=== PATIENT | female | born 1950 | race African-American/Black ===

== ENCOUNTER 2024-01-23 11:26 | Outpatient (AMB) | payer MEDICARE, SELFPAY ==
[2024-01-23 11:35] VITALS: BP 122/66; PULSE 88; RESP 13; O2SAT 99; BMI 34.8
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
== END 2024-01-23 12:20 | disposition home or self-care (01) ==
PROVIDERS: PCP Nurse Practitioner Family; Visit Provider Nurse Practitioner Family
DX: Z00.00 Encounter for general adult medical examination without abnormal findings (principal); E66.2 Morbid (severe) obesity with alveolar hypoventilation; M35.00 Sjogren syndrome, unspecified; Z68.34 Body mass index [BMI] 34.0-34.9, adult; F33.0 Major depressive disorder, recurrent, mild; Z79.899 Other long term (current) drug therapy; R39.9 Unspecified symptoms and signs involving the genitourinary system; F41.1 Generalized anxiety disorder
CPT/HCPCS: 99387

== ENCOUNTER 2024-01-23 12:03 | Outpatient (REF) | payer BC, SELFPAY ==
[2024-01-23 14:56] LABS: Appearance Urine Clear; Color Urine Yellow; Glucose Urine UA Negative (Negative); Leukocyte Esterase Urine Small (1+) (Negative); Nitrite Urine Positive (Negative); PH 5.5 (5.0-9.0); Specific Gravity - Urine 1.015 (1.005-1.025); UMIC TRIGGER UACC YES; Urine Blood Negative (Negative); Urine Ketones Negative (Negative); Urine Protein Negative (Neg-Trace)
[2024-01-23 14:58] LABS: Bacteria Urine 4+ (None Seen); Hyaline Casts Urine 0-2 /LPF (0-2); RBC Urine 0-2 /HPF (0-2); Squamous Epithelial Cell Urine 0-2 /HPF (0-2); UACC Culture Trigger YES; WBC Urine 21-50 /HPF (0-5)
== END 2024-01-23 12:04 | disposition home or self-care (01) ==
LOC: HO.LAB 12:03
PROVIDERS: Visit Provider Nurse Practitioner Family
DX: R39.9 Unspecified symptoms and signs involving the genitourinary system (principal)
CPT/HCPCS: 81001; 87086; 87088; 87186

== ENCOUNTER 2025-03-02 08:26 | Outpatient (AMB) | payer MEDICARE, SELFPAY ==
--- NOTE | 2025-03-02 08:30 | A.OFFPC_ITS ---
Vital Signs 03/02/25 08:38 Height 5 ft 4 in Weight 202 lb 2 oz BMI 34.7 BP 138/78 Blood Pressure Location Rt brachial Position Sitting Respiration 13 Pulse 72 Pulse Source Pulse Oximeter Temp 97.5 F Temp Source Oral Pulse Oximetry (%) 96 Oxygen Delivery Method Room Air Intake Visit Reasons: medication concerns Intake Note: Patient needs refill on meds and also patient needs a referral. Patient also has questins about PT. Finished Cigar Maker Required: No Allergies Spink And Derivatives Allergy (Severe, Verified 03/02/25 08:31) Anaphylaxis Medication List - Last Reconciled 03/02/25 by Pamela Hurt, [employer]- albuterol sulfate 5 mg inhalation QID blood sugar diagnostic (Blood Glucose Test strips) As directed chlorthalidone 25 mg PO DAILY hydroxychloroquine 200 mg PO DAILY ibuprofen 600 mg PO Q8H PRN lancing device (Auto-Lancet Mini) As directed levothyroxine 50 mcg PO DAILY mycophenolate mofetil 500 mg PO BID ondansetron HCl 4 mg PO Q8H sertraline 25 mg PO DAILY Tobacco use date assessed: 03/02/25 Fall risk assessment: 2 + Falls in past year Last assessed Fall Risk: 03/02/25 Dental Screening Dental Screen Date: 03/02/25 Did you have a dental visit in the last 12 months?: Yes Did you have a dental problem in the last 6 months where you did not have access to dental care?: No Was dental information given to patient?: Patient has dentist HPI HPI Comments History of Present Illness Details 75 y/o F with Sjorgens, obesity, MDD, GA D, Hypothyroid, HTN Surgery - left breast lump removed, reports benign, s/p knee replacement Health Maintenance: Colon reports UTD, next one in 6-7 years Mammo states done 2023 [place] Dexa unsure PAP unsure Tdap reports UTD Specialists: Rheumatology Optho Pulm Derm History of Present Illness - The patient is a 75-year-old female pr esenting for follow-up here with Dtr - I have not seen her in about 1 year, w as living between here and [place]; states she is now living her permanently; i do not have records on her; poor historian. - JOSE/MDD on sertaline - Wants PT for bilat knee pain, falls w/ o injury, using cane to walk - Hypertension; chlorthalidone continued , but losartan and amlodipine not refilled since last year. BP WNL today. - Hypothyroid, levothyroxine not taken recently. - Sj?gren's Syndrome requires follow-up, requesting Rheum referral. Discontinues hydroxychloroquine, takes mycophenolate. Reports nausea with the latter and needs Zofran. - would like to see pulm, has cough, rep orts Lung scarring observed in historical imaging, i do not have these records - Gets rashs occassionally, would like t o see Derm - Did have a UTI last time i saw her; st ates she has foul smelling urine today.Denies fever, chills. Review of Systems - Musculoskeletal: Reports instability a nd falls, knee pain. - Neurological: Reports balance issues. - Constitutional: Denies recent mammogra m needed; - Respiratory: Occasional cough; lung sc arring noted historically. - Cardiovascular: No recent hypertension spikes; current medication management discussed. - Dermatological: Mention of intermitten t rashes. - Endocrine: Thyroid medication not take n. - Ophthalmic: Sj?gren?s Syndrome, requi res Optho referral. Physical Exam General: Well developed, well nourished, in no acute distress. Appears stated age. Head: Normocephalic, atraumatic. Eyes: Pupils are equal, round and reactive to light and accommodation. Conjunctivae are clear. Lungs: Cough w/ deep breathing, faint exp wheeze throughout Heart: Distant hard to appreciate, Regular rate and rhythm. No murmurs, click, rubs or gallops are noted. Musculoskeletal: Joints are nontender, without swelling, redness, or effusions. Walks w/ cane. crepitus bilat knees. Pulses: Peripheral pulses are equal and palpable bilaterally. Extremities: No clubbing, cyanosis nor edema is noted. Psych: Mood and affect appropriate. Discussion Notes During the visit, we discussed the need for medication refills and referrals. Medications such as losartan and amlodipine have not been refilled since the last visit, but chlorthalidone has been continued for managing hypertension. The necessity of exploring levothyroxine was acknowledged, pending updated lab work to understand thyroid function before recommencing. Blood work will be completed today to check A1c levels, cholesterol, and to screen for urinary tract infection due to past history with evidence from the last visit. Referrals for rheumatology were initiated for management of rheumatoid arthritis and associated Sj?gren's Syndrome. We also explored a physical therapy referral to address balance issues and knee pain. I have asked staff to get a med claim hx from Martínez Rolon to confirm meds she is taking before refills are sent. This is pending at this time. The patient was advised to follow-up in six months for repeat lab work. Consent for these interventions and referrals was obtained with discussions revolving around specific medical tests and check-ups. We addressed communication preferences with the patient portal, facilitating easy access for the patient to monitor lab results and communicate efficiently. Refills on meds as appropriate will be sent once med claim hx and labs are reviewed. Consent Patient was informed and verbally consented to the use of an ambient scribe for clinic note documentation during this visit. Total time spent caring for the patient today was 45 minutes. This includes time spent before the visit reviewing the chart, time spent during the visit, and time spent after the visit on documentation, reviewing laboratory results, diagnostic imaging, medications, performing a medically necessary evaluation, counseling on diagnoses, care coordination, ordering appropriate tests, ordering appropriate medications, review of tests performed by other providers, reporting test results with the patient, communication with other healthcare providers. [facility] Medical History (Updated 03/02/25 @ 09:14 by Pamela Hurt [facility]) Autoimmune disorder Diabetes Family history of skin conditions JOSE (generalized anxiety disorder) Hypertension Surgical History (Updated 01/23/24 @ 12:38 by Sophia Ayala CMA) No pertinent past surgical history Social History (Updated 01/23/24 @ 12:38 by Sophia Ayala CMA) Household Members: Family Household Members Other:: HAS 2 DAUGHTERS Housing: Apartment Alcohol intake: never Patient Tobacco Use Status: Never used Tobacco e-Cigarette/Vaping Use: Never Used Second Hand Smoke Exposure: No service: No Current occupational status: retired Current occupational exposures/hazards: No Sexual orientation: Straight/Heterosexual Gender identity: Female Cognitive needs: No Hearing needs: No Vision needs: Yes (wears glasses) Questionnaire PHQ-9 Over the last 2 weeks, how often have you been bothered by any of the following problems? 1. Little interest or pleasure in doing things: several days 2. Feeling down, depressed, or hopeless: several days 3. Trouble falling or staying asleep, or sleeping too much: more than half the days 4. Feeling tired or having little energy: several days 5. Poor appetite or overeating: more than half the days 6. Feeling bad about yourself - or that you are a failure or have let yourself or your family down: several days 7. Trouble concentrating on things, such as reading the newspaper or watching television: several days 8. Moving or speaking so slowly that other people could have noticed. Or the opposite - being so fidgety or restless that you have been moving around a lot more than usual: not at all 9. Thoughts that you would be better off or of hurting yourself in some way: not at all Total score: 9 Depression Screening Interpretation: Positive Depression Screening Follow-up: Existing condition and Declines treatment Depression Screening Done: Yes 62876 - PHQ-9 Billing: Yes Source: Developed by Drs. Markos Arreola, Herlinda Gannon, Quincy Schaeffer and colleagues, with an educational benedict from [employer]. Thrive Questionnaire Date Thrive assessed: 03/02/25 I am a: Patient What is your living situation today?: I choose not to answer this question Within the past 12 months, did the food you bought not last and you didn't have the money to get more?: Never true Within the past 12 months, did you worry whether your food would run out before you got money to buy more?: Never true Do you have trouble paying for medicines?: No Do you have trouble getting transportation to medical appointments?: Yes Do you have trouble paying your heating and electricity bill?: No Do you have trouble taking care of your child, family member or friend?: No Do you have trouble with day-to-day activities such as bathing, preparing meals, shopping, managing finances, etc.?: No Are you currently unemployed and looking for a job?: No Are you interested in more education?: I choose not to answer this question Please select the resources that you would like help with: Housing/Longterm and Transportation Currently or been in a relationship where the following occur: No concerns reported THRIVE Score: 1 AUDIT C Alcohol Use Questionnaire (AUDIT-C) 1. How often do you have a drink containing alcohol?: Never 3. How often do you have six or more drinks on one occasion?: Never Total Score: 0 Score Reviewed/Action Taken: Yes JOSE-7 AMB Questionnaire JOSE-7 Date JOSE - 7 assessed: 03/02/25 Feeling nervous, anxious, or on edge: 1 = Several days Not being able to stop or control worryin = More than half the days Worrying too much about different things: 2 = More than half the days Trouble relaxin = More than half the days Being so restless that it is hard to sit still: 1 = Several days Becoming easily annoyed or irritable: 1 = Several days Feeling afraid as if something awful might happen: 0 = Not at all Total JOSE-7 score (0-4 normal; 5-9 mild; 10-14 moderate; 15-21 severe): 9 Source: Developed by Drs. Markos Arreola, Herlinda Gannon, Quincy Schaeffer and colleagues, with an educational benedict from [employer]. JOSE-7 Assessment Billing JOSE-7 Assessment Tool: JOSE-7 Assessment 41414 Physical exam (Primary Care) Vital Signs: Last Vital Signs Temp 97.5 F 03/02/25 08:38 Pulse 72 03/02/25 08:38 Resp 13 03/02/25 08:38 BP 138/78 03/02/25 08:38 Pulse Ox 96 03/02/25 08:38 Oxygen Delivery Method Room Air 03/02/25 08:38 BMI result Body Mass Index 34.7 BMI Assessment/Plan discussion: High BMI High, discussed plan: lifestyle Tobacco/Smoking Status: Tobacco use Status Tobacco use date assessed 03/02/25 03/02/25 08:40 Patient Tobacco Use Status Never used Tobacco 03/02/25 08:40 e-Cigarette/Vaping Use Never Used 03/02/25 08:40 PHQ-9: PHQ-9 Score PHQ-9: Total score 9 03/02/25 08:40 Depression Screening Interpretation: Positive Depression Screening Follow-up: Existing condition and Declines treatment Thrive Assessment: Date of Thrive Assessment Date Thrive assessed 03/02/25 03/02/25 08:40 Currently or been in a relationship where the following occur: No concerns reported Coding Level of Care Code Est Pt Level 5 (48968) Complex EM visit Add On G2211 Diagnoses Sjogren's syndrome, with unspecified organ involvement M35.00 Sjogren organ or system involvement: unspecified organ involvement Class 1 obesity with alveolar hypoventilation, serious comorbidity, and body mass index (BMI) of 34.0 to 34.9 in adult E66.2; Z68.34 Serious obesity comorbidity presence: with serious comorbidity JOSE (generalized anxiety disorder) F41.1 Mild episode of recurrent major depressive disorder F33.0 Major depression episode severity: mild Chronic pain of both knees M25.561; M25.562; G89.29 Chronicity: chronic Fall, initial encounter W19.XXXA Encounter type: initial encounter Primary hypertension I10 Hypertension type: primary hypertension Acquired hypothyroidism E03.9 Hypothyroidism type: acquired Foul smelling urine R82.90 Chronic cough R05.3 Cough type: chronic Skin rash R21 Additional Codes JOSE-7 Assessment Billing - JOSE-7 Assessment Tool: JOSE-7 Assessment 10924 ([id number]) PHQ-9 - 27632 - PHQ-9 Billing: Yes ([id number]) Assessment & Plan Assessment & Plan (1) Sjogren's disease: Comment: unable to further specify as i have no records and she is a very poor historian. cont care w/ rheum Code(s): M35.00 - Sjogren syndrome, unspecified Category: Medical Qualifiers: Sjogren organ or system involvement: unspecified organ involvement Qualified Code(s): M35.00 - Sjogren syndrome, unspecified (2) Class 1 obesity with alveolar hypoventilation and body mass index (BMI) of 34.0 to 34.9 in adult: Comment: lifestyle mods recommended Code(s): E66.2 - Morbid (severe) obesity with alveolar hypoventilation; Z68.34 - Body mass index [BMI] 34.0-34.9, adult Category: Medical Qualifiers: Serious obesity comorbidity presence: with serious comorbidity Qualified Code(s): E66.2 - Morbid (severe) obesity with alveolar hy poventilation; Z68.34 - Body mass index [BMI] 34.0-34.9, adult (3) JOSE (generalized anxiety disorder): Code(s): F41.1 - Generalized anxiety disorder Category: Medical (4) MDD (major depressive disorder), recurrent episode: Code(s): F33.9 - Major depressive disorder, recurrent, unspecified Category: Medical Qualifiers: Major depression episode severity: mild Qualified Code(s): F33.0 - Major depressive disorder, recurrent, mild (5) Bilateral knee pain: Code(s): M25.561 - Pain in right knee; M25.562 - Pain in left knee Category: Medical Qualifiers: Chronicity: chronic Qualified Code(s): M25.561 - Pain in right knee; M25.562 - Pain in left knee; G89.29 - Other chronic pain (6) Fall: Code(s): W19.XXXA - Unspecified fall, initial encounter Category: Medical Qualifiers: Encounter type: initial encounter Qualified Code(s): W19.XXXA - Unspecified fall, initial encounter (7) Hypertension: Code(s): I10 - Essential (primary) hypertension Category: Medical Qualifiers: Hypertension type: primary hypertension Qualified Code(s): I10 - Essential (primary) hypertension (8) Hypothyroid: Code(s): E03.9 - Hypothyroidism, unspecified Category: Medical Qualifiers: Hypothyroidism type: acquired Qualified Code(s): E03.9 - Hypothyroidism, unspecified (9) Foul smelling urine: Code(s): R82.90 - Unspecified abnormal findings in urine Category: Medical (10) Cough: Code(s): R05.9 - Cough, unspecified Category: Medical Qualifiers: Cough type: chronic Qualified Code(s): R05.3 - Chronic cough (11) Skin rash: Code(s): R21 - Rash and other nonspecific skin eruption Category: Medical Plan . Orders: Orders PT Evaluation and Treatment Today M25.561 - Pain in right knee, M25.562 - Pain in left knee, R26.81 - Unsteadiness on feet, W19.XXXA - Unspecified fall, initial encounter Complete Blood Count no Diff Today E03.9 - Hypothyroidism, unspecified, F33.0 - Major depressive disorder, recurrent, mild, F41.1 - Generalized anxiety disorder, I10 - Essential (primary) hypertension, R82.90 - Unspecified abnormal findings in urine Comprehensive Met. Panel Today E03.9 - Hypothyroidism, unspecified, F33.0 - Major depressive disorder, recurrent, mild, F41.1 - Generalized anxiety disorder, I10 - Essential (primary) hypertension, R82.90 - Unspecified abnormal findings in urine Hemoglobin A1c Today E03.9 - Hypothyroidism, unspecified, F33.0 - Major depressive disorder, recurrent, mild, F41.1 - Generalized anxiety disorder, I10 - Essential (primary) hypertension, R82.90 - Unspecified abnormal findings in urine Lipid Panel Today E03.9 - Hypothyroidism, unspecified, F33.0 - Major depressive disorder, recurrent, mild, F41.1 - Generalized anxiety disorder, I10 - Essential (primary) hypertension, R82.90 - Unspecified abnormal findings in urine TSH reflex Free T4 Today E03.9 - Hypothyroidism, unspecified, F33.0 - Major depressive disorder, recurrent, mild, F41.1 - Generalized anxiety disorder, I10 - Essential (primary) hypertension, R82.90 - Unspecified abnormal findings in urine Microalbumin, Random (w Creat) Today E03.9 - Hypothyroidism, unspecified, F33.0 - Major depressive disorder, recurrent, mild, F41.1 - Generalized anxiety disorder, I10 - Essential (primary) hypertension, R82.90 - Unspecified abnormal findings in urine Vitamin B12 and Folate Today E03.9 - Hypothyroidism, unspecified, F33.0 - Major depressive disorder, recurrent, mild, F41.1 - Generalized anxiety disorder, I10 - Essential (primary) hypertension, R82.90 - Unspecified abnormal findings in urine Vitamin D 25-OH Total Today E03.9 - Hypothyroidism, unspecified, F33.0 - Major depressive disorder, recurrent, mild, F41.1 - Generalized anxiety disorder, I10 - Essential (primary) hypertension, R82.90 - Unspecified abnormal findings in urine UA CC w/rflx Micro + Cult Today E03.9 - Hypothyroidism, unspecified, F33.0 - Major depressive disorder, recurrent, mild, F41.1 - Generalized anxiety disorder, I10 - Essential (primary) hypertension, R82.90 - Unspecified abnormal findings in urine Referrals Ophthalmology Referral M35.00 - Sjogren syndrome, unspecified Dermatology Referral M35.00 - Sjogren syndrome, unspecified, R21 - Rash and other nonspecific skin eruption Rheumatology Referral M35.00 - Sjogren syndrome, unspecified Pulmonology Referral M35.00 - Sjogren syndrome, unspecified, R05.9 - Cough, unspecified
--- OUTSIDE RECORDS SUMMARY | 2025-03-02 08:35 | XMS_ITS | Patient Health Record ---
Author Organization [facility] Address [address] [place] [address] Care Team Providers Care Manufacturing Quality Engineer Name Role Phone CHAPIS CARNES Primary Care Provider [phone] Reason For Referral No Information Plan Of Treatment No Information Insurance Providers Payer Name Payer Address Payer Phone Subscriber Number Group Number Insured Name Patient Relationship to Insured Coverage Start Date Coverage End Date COVID19 HRSA Uninsured Testing and Treatment CARES Act Provider Relief Fund [address] [address] [place] [address] [id number] Danyelle Hughes Self - patient is the insured 1 2
[2025-03-02 08:38] VITALS: BP 138/78; PULSE 72; RESP 13; TEMP 36.4; O2SAT 96; BMI 34.7
== END 2025-03-02 09:07 | disposition home or self-care (01) ==
LOC: HO.HMCFM 08:27
PROVIDERS: PCP Nurse Practitioner Family; Visit Provider Nurse Practitioner Family
DX: M35.00 Sjogren syndrome, unspecified (principal); E66.2 Morbid (severe) obesity with alveolar hypoventilation; Z68.34 Body mass index [BMI] 34.0-34.9, adult; F41.1 Generalized anxiety disorder; F33.0 Major depressive disorder, recurrent, mild; M25.561 Pain in right knee; M25.562 Pain in left knee; G89.29 Other chronic pain; W19.XXXA Unspecified fall, initial encounter; I10 Essential (primary) hypertension; E03.9 Hypothyroidism, unspecified; R82.90 Unspecified abnormal findings in urine; R05.3 Chronic cough; R21 Rash and other nonspecific skin eruption

== ENCOUNTER → 2025-03-02 08:26 | Outpatient (BNVA) | payer MEDICARE, SELFPAY | PROVIDERS: PCP Nurse Practitioner Family; Visit Provider Nurse Practitioner Family | DX: Z13.89 Encounter for screening for other disorder (principal) | CPT/HCPCS: 96127; 99212 ==

== ENCOUNTER 2025-03-02 09:18 | Outpatient (REF) | payer MEDICARE, SELFPAY ==
[2025-03-02 11:16] LABS: Appearance Urine Clear; Color Urine Yellow; Glucose Urine UA Negative (Negative); Leukocyte Esterase Urine Moderate (2+) (Negative); Nitrite Urine Positive (Negative); UMIC TRIGGER UACC YES; Urine Blood Negative (Negative); Urine Ketones Negative (Negative); Urine Protein Negative (Neg-Trace)
[2025-03-02 11:21] LABS: Bacteria Urine 4+ (None Seen); Hyaline Casts Urine 0-2 /LPF (0-2); RBC Urine 0-2 /HPF (0-2); Squamous Epithelial Cell Urine 0-2 /HPF (0-2); UACC Culture Trigger YES; WBC Urine >50 /HPF (0-5)
[2025-03-02 11:37] LABS: Hematocrit 33.3 % (37.0-47.0); Hemoglobin 10.4 g/dl (12.0-16.0); Mean Corpuscular HGB Conc 31.2 g/dl (31.0-35.0); Mean Corpuscular Hemoglobin 24.1 pg (27.0-33.0); Mean Corpuscular Volume 77.3 fL (80.0-98.0); Mean Platelet Volume 11.6 fL (9.4-12.3); Platelet Count 262 X10*3/uL (160-400); Red Blood Count 4.31 X10*6/uL (4.20-5.50); Red Cell Distribution Width 15.7 % (11.0-16.0); White Blood Count 7.6 X10*3/uL (4.8-10.8)
[2025-03-02 11:44] LABS: Estimated Average Glucose 134 mg/dL; Hemoglobin A1c % 6.3 % (<6.0)
[2025-03-02 12:18] LABS: Creatinine Urine 83.23 mg/dL; Microalbum/Creatinine Ratio Ur 13.2 ug/mg cr (<30)
[2025-03-02 12:31] LABS: Folate 11.3 ng/mL (> or = 4.0); Vitamin B12 1021 pg/mL (200-900)
[2025-03-02 15:14] LABS: Vitamin D 25-OH Total 25.1 ng/mL (>30)
[2025-03-02 15:27] LABS: Anion Gap 9 (12-20)
[2025-03-02 15:32] LABS: Alanine Aminotransferase 11 U/L (0-31); Albumin Level 3.8 g/dL (3.5-5.0); Alkaline Phosphatase 77 U/L (39-117); Aspartate Amino Transferase 21 U/L (5-31); Bilirubin Total 0.2 mg/dL (0.0-1.0); Blood Urea Nitrogen 17 mg/dL (9-16); Calcium 9.3 mg/dL (8.4-10.2); Carbon Dioxide 28 mmol/L (22-29); Chloride 109 mmol/L (96-108); Cholesterol 176 mg/dL (<200); Estimated Glomerular Filt Rate 42; Glucose Random 102 mg/dL (60-115); HDL Cholesterol 48 mg/dL (>40); LDL Cholesterol Calculated 109 mg/dL (<100); Potassium 3.7 mmol/L (3.3-5.1); Sodium 142 mmol/L (135-145); Total Protein 8.4 g/dL (6.5-8.0); Triglycerides 97 mg/dL (<150)
== END 2025-03-02 09:19 | disposition home or self-care (01) ==
LOC: HO.WFDLDS 09:18
PROVIDERS: Visit Provider Nurse Practitioner Family
DX: F41.1 Generalized anxiety disorder (principal); F33.0 Major depressive disorder, recurrent, mild; E03.9 Hypothyroidism, unspecified; I10 Essential (primary) hypertension; R82.90 Unspecified abnormal findings in urine; Z13.30 Encounter for screening examination for mental health and behavioral disorders, unspecified
CPT/HCPCS: 36415; 80053; 80061; 81001; 82043; 82306; 82570; 82607; 82746; 83036; 84443; 85027; 87086; 87088; 87186; 96127; 99212

== ENCOUNTER 2025-04-15 10:55 | Outpatient (REF) | payer BC, SELFPAY ==
[2025-04-15 12:55] LABS: MANUAL DIFF FLAG NO
[2025-04-15 14:06] LABS: Hematocrit 35.6 % (37.0-47.0); Hemoglobin 11.1 g/dl (12.0-16.0); Imm Gran Abs Auto 0.04 X10*3/uL (0.00-0.03); Imm Gran Pct Auto 0.5 % (0.0-0.4); Lymphocytes Absolute Auto 2.5 X10*3/uL (1.2-4.9); Mean Corpuscular HGB Conc 31.2 g/dl (31.0-35.0); Mean Corpuscular Hemoglobin 23.9 pg (27.0-33.0); Mean Corpuscular Volume 76.7 fL (80.0-98.0); NRBC Abs Auto 0.000 X10*3/uL (0.0-0.012); NRBC Pct Auto 0.0 /100WBC (0.0-0.2); Platelet Count 238 X10*3/uL (160-400); Red Blood Count 4.64 X10*6/uL (4.20-5.50); White Blood Count 8.8 X10*3/uL (4.8-10.8)
[2025-04-15 14:54] LABS: Parathyroid Hormone Intact 120.3 pg/mL (8.7-77.1)
[2025-04-20 10:19] LABS: Anti Glomerular Basement Memb <1.0 AI; Proteinase 3 PR3 Antibodies <1.0 AI
[2025-04-21 02:39] LABS: Phospholipase A2 IgG ELISA <4 RU/mL; Phospholipase A2 IgG IFA NEGATIVE (NEGATIVE)
== END 2025-04-15 10:56 | disposition home or self-care (01) ==
LOC: HO.LAB 10:55
PROVIDERS: PCP Nurse Practitioner Family; Referring Provider Nurse Practitioner Family; Visit Provider Internal Medicine Nephrology
DX: N18.30 Chronic kidney disease, stage 3 unspecified (principal); I10 Essential (primary) hypertension
CPT/HCPCS: 36415; 82306; 82784; 83520; 83970; 85025; 86021; 86160; 86225; 86255; 86334

== ENCOUNTER 2025-04-15 10:55 | Outpatient (AMB) | payer BC, SELFPAY ==
--- NOTE | 2025-04-15 11:29 | HO.NEPHOV_ITS ---
Vital Signs 04/15/25 11:30 Height 5 ft 4 in Weight 191 lb 8 oz BMI 32.9 BP 140/70 H Blood Pressure Location Rt brachial Position Sitting Pulse 79 Pulse Source Pulse Oximeter Pulse Oximetry (%) 95 Oxygen Delivery Method Room Air Intake Visit Reasons: INP:CKD stg 3, Anemia, Sjogren syndrome Machine Feeder Raw Stock Required: No Accompanied by: Self / Same As Patient Allergies [place] And Derivatives Allergy (Severe, Verified 04/15/25 11:30) Anaphylaxis HPI Comments Details: I had the privilege of seeing Danyelle in consultation for CKD. She is a 75-year-old female who had been living between [place], [place] and [place] with H/O Sjogren's syndrome who takes MMF for it. She is not a diabetic but has hypertension for which she is on chlorthalidone .She has H/O losartan and amlodipine intake but not taking anymore. She has bilateral knee pain but denies taking excess NSAID's. She has H/O UTI's but denies fever, chills, hematuria or edema. She denies retinopathy, CAD, carotid stenosis, CVA, CHF or PAD. She has no H/O orthostatic drop in blood pressure, PND, orthopnea, chest pain, palpitations or proteinuria. Her last serum creatinine has been 1.25 [facility] Medical History (Updated 04/18/25 @ 21:15 by Tanner Brar MD) Family history of skin conditions Autoimmune disorder Diabetes Hypertension JOSE (generalized anxiety disorder) Surgical History No pertinent past surgical history Social History Household Members: Family Household Members Other:: HAS 2 DAUGHTERS Housing: Apartment Alcohol intake: never Patient Tobacco Use Status: Never used Tobacco e-Cigarette/Vaping Use: Never Used Second Hand Smoke Exposure: No service: No Current occupational status: retired Current occupational exposures/hazards: No Sexual orientation: Straight/Heterosexual Gender identity: Female Cognitive needs: No Hearing needs: No Vision needs: Yes (wears glasses) Review of Systems Const All systems reviewed & are unremarkable except as noted in HPI and below Physical Exam Vital Signs: Last Vital Signs Pulse 79 04/15/25 11:30 BP 140/70 H 04/15/25 11:30 Pulse Ox 95 04/15/25 11:30 Oxygen Delivery Method Room Air 04/15/25 11:30 BMI result Body Mass Index 32.9 Const General: comfortable and no acute distress Orientation/consciousness: patient oriented x3 HEENT Head: Yes normocephalic Mouth: Normal oral and palatal mucosa present Eyes EOM: EOMs intact bilaterally Neck Neck: Yes supple Resp Auscultation: clear to auscultation bilaterally Cardio Jugular venous distension: no JVD Rate: regular rate GI Palpation (GI): Soft to palpation Auscultation: normal bowel sounds General: Yes no CVA tenderness Back/Spine/Pelvis Back: no CVA tenderness Skin General skin exam: no rashes or lesions noted Neuro General: patient oriented x3 and moves all extremities Extrem General: Yes no pedal edema Results Reviewed Nephrology Results: Hgb, (12.0-16.0) 11.1 g/dl L 04/15/25 WBC, (4.8-10.8) 8.8 X10*3/uL 04/15/25 Plt Count, (160-400) 238 X10*3/uL 04/15/25 Sodium, (135-145) 142 mmol/L 03/02/25 Potassium, (3.3-5.1) 3.7 mmol/L 03/02/25 Chloride, (96-108) 109 mmol/L H 03/02/25 Carbon Dioxide, (22-29) 28 mmol/L 03/02/25 BUN, (9-16) 17 mg/dL H 03/02/25 Creatinine, (0.5-1.4) 1.25 mg/dL 03/02/25 Calcium, (8.4-10.2) 9.3 mg/dL 03/02/25 PTH Intact, (8.7-77.1) 120.3 pg/mL H 04/15/25 Urine Protein, (Neg-Trace) Negative mg/dL 03/02/25 Urine Creatinine 83.23 mg/dL 03/02/25 Assessment & Plan Assessment & Plan (1) Hypertension: Code(s): I10 - Essential (primary) hypertension Category: Medical Qualifiers: Hypertension type: primary hypertension Qualified Code(s): I10 - Essential (primary) hypertension (2) CKD (chronic kidney disease) stage 3, GFR 30-59 ml/min: Code(s): N18.30 - Chronic kidney disease, stage 3 unspecified Category: Medical Qualifiers: Chronic kidney disease stage 3 subtype: stage 3a (GFR 45-59) Qualified Code(s): N18.31 - Chronic kidney disease, stage 3a Plan Danyelle has CKD 3. Her serum creatinine was 1.25. She has hypertension and H/O ACEI but not on it now. She is just on Chlorthalidone now. Her BP needs to be kept at goal. She has Sjogrens and is on MMF. She has no proteinuria. DDx is broad now. I have ordered W/U including imaging studies. I shall consider initiating her on low dose ACEI with time. There is no indication for renal biopsy now. She should minimize NSAID's and maintain good hydration. She is a potential candidate for SGLT2i in the future. Further management is pending evolving data Orders: Orders Anti DNA DS Antibody 04/15/25 I10 - Essential (primary) hypertension, N18.30 - Chronic kidney disease, stage 3 unspecified Myeloperoxidase Antibody 04/15/25 I10 - Essential (primary) hypertension, N18.30 - Chronic kidney disease, stage 3 unspecified Complement C3 04/15/25 I10 - Essential (primary) hypertension, N18.30 - Chronic kidney disease, stage 3 unspecified Phospholipase A2 Receptor Pnl 04/15/25 I10 - Essential (primary) hypertension, N18.30 - Chronic kidney disease, stage 3 unspecified Parathyroid Hormone Intact 04/15/25 I10 - Essential (primary) hypertension, N18.30 - Chronic kidney disease, stage 3 unspecified Vitamin D 25-OH Total 04/15/25 I10 - Essential (primary) hypertension, N18.30 - Chronic kidney disease, stage 3 unspecified Protein Creatinine Ratio, Ur 04/15/25 I10 - Essential (primary) hypertension, N18.30 - Chronic kidney disease, stage 3 unspecified UA and rflx microscopic 04/15/25 I10 - Essential (primary) hypertension, N18.30 - Chronic kidney disease, stage 3 unspecified Proteinase 3 PR3 Antibodies 04/15/25 I10 - Essential (primary) hypertension, N18.30 - Chronic kidney disease, stage 3 unspecified Anti Glomerular Basement Memb 04/15/25 I10 - Essential (primary) hypertension, N18.30 - Chronic kidney disease, stage 3 unspecified Complement C4 04/15/25 I10 - Essential (primary) hypertension, N18.30 - Chronic kidney disease, stage 3 unspecified Immunofixation Pnl, Serum 04/15/25 I10 - Essential (primary) hypertension, N18.30 - Chronic kidney disease, stage 3 unspecified Complete Blood Count Auto Diff 04/15/25 I10 - Essential (primary) hypertension, N18.30 - Chronic kidney disease, stage 3 unspecified US renal BI 2 Weeks I10 - Essential (primary) hypertension, N18.30 - Chronic kidney disease, stage 3 unspecified Coding Level of Care Code New Pt Level 4 (13701) Diagnoses Primary hypertension I10 Hypertension type: primary hypertension Stage 3a chronic kidney disease N18.31 Chronic kidney disease stage 3 subtype: stage 3a (GFR 45-59)
--- OUTSIDE RECORDS SUMMARY | 2025-04-15 11:29 | XMS_ITS | Patient Health Record ---
Author Organization [facility] Address [address] [place] [address] Care Team Providers Care System Integration Engineer Name Role Phone CHAPIS CARNES Primary Care Provider Reason For Referral No Information Plan Of Treatment No Information Insurance Providers Payer Name Payer Address Payer Phone Subscriber Number Group Number Insured Name Patient Relationship to Insured Coverage Start Date Coverage End Date COVID19 HRSA Uninsured Testing and Treatment CARES Act Provider Relief Fund [address] [address] [place] [address] [id number] Danyelle Hughes Self - patient is the insured 1 2
[2025-04-15 11:30] VITALS: BP 140/70; PULSE 79; O2SAT 95; BMI 32.9
== END 2025-04-15 12:02 | disposition home or self-care (01) ==
LOC: HO.HKA 10:56
PROVIDERS: PCP Nurse Practitioner Family; Referring Provider Nurse Practitioner Family; Visit Provider Internal Medicine Nephrology
DX: I10 Essential (primary) hypertension (principal); N18.31 Chronic kidney disease, stage 3a
CPT/HCPCS: 99204

== ENCOUNTER 2025-04-22 11:15 | Outpatient (REF) | payer BC, SELFPAY ==
--- OUTSIDE RECORDS SUMMARY | 2025-04-22 11:21 | XMS_ITS | Clinical Summary ---
Author Organization [facility] Address [address] [place] [phone] Phone Care Team Providers Care Health Unit Supervisor Name Role Phone Unknown, Unknown MD Unavailable Unavailable Unknown, Unknown Primary Care Provider Verna lin Allergies Active Allergy Reactions Criticality Noted Date Comments [place] And Derivatives Hives 07/28/2012 Medications hydroxychloroqu ine (PLAQUENIL) 200 mg tablet 400 mg. Active enalapril (VASOTEC) 20 MG tablet 40 mg. Active albuterol 90 mcg/actuation inhaler Inhale 2 puffs into the lungs every 4 (four) hours. 1 Inhaler 12/24/2017 Active naproxen (NAPROSYN) 500 MG tablet Take 500 mg by mouth. 03/18/2017 Active levothyroxine (SYNTHROID, LEVOTHROID) 50 MCG tablet Take 50 mcg by mouth daily. 06/09/2017 Active ferrous sulfate 325 mg (65 mg [place] iron) tablet Take 325 mg by mouth daily. 03/27/2016 Active valsartan (DIOVAN) 320 MG tablet Take 320 mg by mouth. 02/28/2023 Active mycophenolate mofetil (CELLCEPT) 500 mg tablet Take 1 tablet by mouth 2 (two) times a day. 12/30/2022 Active ondansetron (ZOFRAN) 4 MG tablet Take 4 mg by mouth every 8 (eight) hours as needed. 04/02/2023 Active sertraline (ZOLOFT) 25 MG tablet TAKE 2 TABLETS ONE TIME DAILY 02/24/2023 Active clobetasol (TEMOVATE) 0.05 % ointment 04/11/2023 Active budesonide-form oterol (SYMBICORT) 160-4.5 mcg/actuation inhaler Inhale 2 puffs into the lungs. 03/26/2022 Active amLODIPine (NORVASC) 5 MG tablet Take 5 mg by mouth. 07/22/2022 Active azelastine (ASTELIN) 137 mcg (0.1 %) nasal spray 137 mcg by Nasal route. 04/03/2022 Active TRUE METRIX GLUCOSE TEST STRIP Strp strips 09/16/2023 Active TRUEPLUS LANCETS 28 gauge Misc CHECK BLOOD GLUCOSE ONE TIME DAILY 09/15/2023 Active Active Problems Problem Noted Date Diagnosed Date Bronchiectasis without complication 08/05/2022 05/28/2023 Overview (05/28/2023): Last Assessment & Plan: Bronchiectasis without complication. Will schedule albuterol TID for airway clearance. If starts having more production will progress to singulair and 3% saline nebs. 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 Not on shanice e 01/24/2023 Are you concerned about learning? Not on file 01/24/2023 No 01/24/2023 No 01/24/2023 Digital Access Answer Date Recorded No 02/25/2023 No 02/25/2023 Reliable internet access at home? Not on file 02/25/2023 Device with a working camera? Not on file Comments Unknown Sex and Gender Information Value Date Recorded Sex Assigned at Not on file Legal Sex Female 5:56 PM EDT Gender Identity Not on file Sexual Orientation Not on file Last Filed Vital Signs Vital Sign Reading Time Taken Comments Blood Pressure 135/71 09/23/2023 1:17 PM EST Pulse 85 09/23/2023 1:17 PM EST Temperature 36.8 C (98.2 F) 09/23/2023 1:17 PM EST Respiratory Rate 19 09/23/2023 1:17 PM EST Oxygen Saturation 97% 09/23/2023 1:17 PM EST Inhaled Oxygen Concentration - - Weight 87.5 kg (193 lb) 02/16/2018 11:27 AM EDT Height 161.3 cm (5' 3.5 ) 02/16/2018 11:27 AM ED T Body Mass Index 33.65 02/16/2018 11:27 AM EDT Plan of Treatment Upcoming Encounters Date Type Department Care Team (Late st Contact Info) Description 06/13/2025 3:00 PM EDT Office Visit [facility] [address] [place] [address] [place] [address] Stewart Todd DO [address] [facility], [address] [place] [address] [email or web address] Health Maintenance Due Date Last Done Comments COVID-19 VACCINE (#1) 1955 DEPRESSION SCREENING 1962 HEPATITIS C SCREENING 02/09/1968 LIPID PANEL 02/09/1968 PNEUMOCOCCAL VACCINES (50+ years) (1 of 2 - PCV) 1969 COLOGUARD 1995 COLONOSCOPY 1995 COLORECTAL CANCER SCREENING 1995 FIT TEST 1995 FOBT 1995 SIGMOIDOSCOPY 1995 VIRTUAL COLONOSCOPY 1995 CREATININE LEVEL 02/16/2019 02/16/2018 POTASSIUM LEVEL 02/16/2019 02/16/2018 HEMOGLOBIN A1C 10/05/2022 04/04/2022, 07/0 03/2022, 02/14/2020, Additional history exists TSH LEVEL 04/04/2023 04/04/2022, 07/0 03/2022, 09/14/2020, Additional history exists DIABETIC EYE EXAM 05/28/2023 11/10/2020, , 05/16/2016, Additional history exists BLOOD PRESSURE 03/24/2024 09/23/2023 RSV VACCINE (1 - 1-dose 75+ series) 2025 Adult Td,Tdap Booster 06/10/2028 06/10/2018, 006 OSTEOPOROSIS SCREENING INITIAL (ONE-TIME) Completed 11/17/2020, 04/23/2018 ZOSTER VACCINES Completed 07/24/2022, 04/03/2022 SMOKING STATUS SCREENING (Once After 26 Yrs) Completed 05/28/2023 HEPATITIS A VACCINES Aged Out No long er eligible based on patient's age to complete this topic HIB VACCINES Aged Out No longer eligi ble based on patient's age to complete this topic MENINGOCOCCAL VACCINES (ACWY) Aged Out No longer eligible based on patient's age to complete this topic MENINGOCOCCAL VACCINES (B) Aged Out N o longer eligible based on patient's age to complete this topic Medical Devices Not on file Procedures Procedure Name Priority Date/Time Associated Diagnosis Comments TSH WITH REFLEX Routine 02/16/2018 12:12 PM EDT Acquired hypothyroidism BASIC METABOLIC PANEL Routine 02/16/2018 12:12 PM EDT Benign essential hypertension from Last 3 Months or Most Recently Relevant to Health Maintenance Results * TSH with reflex (02/16/2018 12:12 PM EDT) TSH 1.09 0.27 - 4.20 uIU/mL [facility] Blood 02/16/2018 12:1 2 PM EDT 02/16/2018 12:14 PM EDT us Surendra Rojas MD LAB BLOOD ORDERABLES Final Resu lt Performing Organization Address [facility]/ZIP Co de Phone Number [address] [address] * Basic metabolic panel (02/16/2018 12:12 PM EDT) SODIUM 140 133 - 146 mmol/L [facility] CHLORIDE 104 96 - 108 mmol/L [facility] POTASSIUM 5.0 3.3 - 5.1 mmol/L [facility] CO2 28 21 - 35 mmol/L [facility] BUN 12 6 - 19 mg/dL [facility] CREATININE 0.90 0.5 - 1.5 mg/dL [facility] GLUCOSE 89 70 - 99 mg/dL [facility] CALCIUM 9.7 8.4 - 10.3 mg/dL [facility] EGFR 66 >59 mL/min/1.7 3m2 [facility] Comment:If patient is black, multiply result by 1.159. The eGFR calculation has changed from the MDRD equation to the CKD-EPI equation as of December 02, 2017. ANION GAP 13 10 - 20 mmol/L [facility] Blood 02/16/2018 12:1 2 PM EDT 02/16/2018 12:14 PM EDT us Surendra Rojas MD LAB BLOOD ORDERABLES Final Resu lt Performing Organization Address [facility]/ZIP Co de Phone Number [address] [address] from Last 3 Months or Most Recently Relevant to Health Maintenance Insurance [place] BLUE REPLACEMENT MEDICARE PPO BLUE REPLACEMENT MEDICARE PPO BLUE [place] [address] [place] [address] MEDICARE PPO BLUE [place] [address] [place] [address] MEDICARE PPO BLUE REPLACEMENT [place] Care Teams Health Unit Supervisor Relationship Specialty Start Date End Date Unknown, Unknown, PCP - General 01/18/20 Unknown, Unknown, 12/25/17 Additional Source Comments The information contained in this document represents components of the legal health record. It is not the complete legal health record.[facility]
--- OUTSIDE RECORDS SUMMARY | 2025-04-22 11:21 | XMS_ITS | Patient Health Record ---
Author Organization [facility] Address [address] [place] [address] Care Team Providers Care Peanut Blancher Name Role Phone CHAPIS CARNES Primary Care Provider Reason For Referral No Information Plan Of Treatment No Information Insurance Providers Payer Name Payer Address Payer Phone Subscriber Number Group Number Insured Name Patient Relationship to Insured Coverage Start Date Coverage End Date COVID19 HRSA Uninsured Testing and Treatment CARES Act Provider Relief Fund [address] [address] [place] [address] [id number] Danyelle Hughes Self - patient is the insured 1 2
[2025-04-22 13:55] LABS: Appearance Urine Clear; Glucose Urine UA Negative (Negative); PH 7.0 (5.0-9.0); Specific Gravity - Urine 1.010 (1.005-1.025); UMIC TRIGGER UACC YES
[2025-04-22 14:06] LABS: UACC Culture Trigger YES
[2025-04-22 14:26] LABS: Total Protein Urine Random < 7 mg/dL (<12)
== END 2025-04-22 11:16 | disposition home or self-care (01) ==
LOC: HO.WFDLDS 11:15
PROVIDERS: Referring Provider Internal Medicine Nephrology; Visit Provider Nurse Practitioner Family
DX: I12.9 Hypertensive chronic kidney disease with stage 1 through stage 4 chronic kidney disease, or unspecified chronic kidney disease (principal); N18.30 Chronic kidney disease, stage 3 unspecified; F41.1 Generalized anxiety disorder; F33.0 Major depressive disorder, recurrent, mild; E03.9 Hypothyroidism, unspecified; R82.90 Unspecified abnormal findings in urine
CPT/HCPCS: 81001; 82570; 84156; 87086; 87088; 87186

== ENCOUNTER 2025-04-28 12:48 | Outpatient (REF) | payer MEDICARE, SELFPAY ==
--- NOTE | ~2025-04-28 | US_ITS ---
CLINICAL HISTORY: N18.30 - Chronic kidney disease, stage 3 unspecified US Renal Comparison: None provided Findings: Right kidney normal size and echotexture, 9.4 cm length. Left kidney normal size and echotexture, 8.5 cm length. No hydronephrosis of either kidney. Normal color Doppler IMPRESSION: 1. Normal kidneys. This document has been electronically signed by: Eduar Wellington MD on 04/29/2025 08:35:38
--- OUTSIDE RECORDS SUMMARY | 2025-04-28 12:58 | XMS_ITS | Patient Health Record ---
Author Organization [facility] Address [address] [place] [address] Care Team Providers Care Transfer Knitter Name Role Phone CHAPIS CARNES Primary Care Provider Reason For Referral No Information Plan Of Treatment No Information Insurance Providers Payer Name Payer Address Payer Phone Subscriber Number Group Number Insured Name Patient Relationship to Insured Coverage Start Date Coverage End Date COVID19 HRSA Uninsured Testing and Treatment CARES Act Provider Relief Fund [address] [address] [place] [address] [id number] Danyelle Hughes Self - patient is the insured 1 2
--- OUTSIDE RECORDS SUMMARY | 2025-04-28 12:58 | XMS_ITS | Clinical Summary ---
Author Organization [facility] Address [address] [place], [place] [id number] Phone Care Team Providers Care Truck Guard Name Role Phone Unknown, Unknown MD Unavailable Unavailable Unknown, Unknown Primary Care Provider Verna lin Allergies Active Allergy Reactions Criticality Noted Date Comments [place] And Derivatives Hives 07/28/2012 Medications hydroxychloroqu ine [...] Active ferrous sulfate 325 mg (65 mg [place] iron) tablet Take 325 mg by mouth [...] EDT Office Visit [facility] [address] [place] [address] [place] [address] Stewart Todd DO [address] [facility] [address] [place] [address] [email or web address] Health Maintenance Due Date Last Done Comments [...] EDT) TSH 1.09 0.27 - 4.20 uIU/mL [facility] Blood 02/16/2018 12:1 2 PM EDT 02/16/2018 12:14 PM EDT us Surendra Rojas MD LAB BLOOD ORDERABLES Final Resu lt Performing Organization Address [facility]/ZIP Co de Phone Number [address] [address] * Basic metabolic panel (02/16/2018 12:12 PM EDT) SODIUM 140 133 - 146 mmol/L [facility] CHLORIDE 104 96 - 108 mmol/L [facility] POTASSIUM 5.0 3.3 - 5.1 mmol/L [facility] CO2 28 21 - 35 mmol/L [facility] BUN 12 6 - 19 mg/dL [facility] CREATININE 0.90 0.5 - 1.5 mg/dL [facility] GLUCOSE 89 70 - 99 mg/dL [facility] CALCIUM 9.7 8.4 - 10.3 mg/dL [facility] EGFR 66 >59 mL/min/1.7 3m2 [facility] Comment:If patient is black, multiply result by 1.159. The eGFR calculation has changed from the MDRD equation to the CKD-EPI equation as of December 02, 2017. ANION GAP 13 10 - 20 mmol/L [facility] Blood 02/16/2018 12:1 2 PM EDT 02/16/2018 12:14 PM EDT us Surendra Rojas MD LAB BLOOD ORDERABLES Final Resu lt Performing Organization Address [facility]/ZIP Co de Phone Number [address] [address] from Last 3 Months or Most Recently Relevant to Health Maintenance Insurance [place] BLUE REPLACEMENT MEDICARE PPO BLUE REPLACEMENT MEDICARE PPO [place] [address] [address] [place] [address] MEDICARE PPO [place] [address] [place] [address] MEDICARE PPO BLUE REPLACEMENT [place] Care Teams Truck Guard Relationship Specialty Start Date End Date Unknown, Unknown, PCP - General 01/18/20 Unknown, Unknown, 12/25/17 Additional Source Comments The information contained in this document represents components of the legal health record. It is not the complete legal health record.[facility]
== END 2025-04-28 12:49 | disposition home or self-care (01) ==
LOC: HO.US 12:48
PROVIDERS: PCP Nurse Practitioner Family; Visit Provider Internal Medicine Nephrology
DX: I12.9 Hypertensive chronic kidney disease with stage 1 through stage 4 chronic kidney disease, or unspecified chronic kidney disease (principal); N18.30 Chronic kidney disease, stage 3 unspecified
CPT/HCPCS: 76775

== ENCOUNTER → 2025-04-28 12:50 | Outpatient (BNV) | payer MEDICARE, SELFPAY | PROVIDERS: PCP Nurse Practitioner Family; Visit Provider Specialist | DX: N18.30 Chronic kidney disease, stage 3 unspecified (principal) | CPT/HCPCS: 76775 ==

== ENCOUNTER 2025-05-18 09:53 | Outpatient (AMB) | payer MEDICARE, SELFPAY ==
--- NOTE | 2025-05-18 10:20 | HO.NEPHOV ---
Vital Signs 05/18/25 10:21 Height 5 ft 4 in Weight 189 lb 2 oz BMI 32.5 BP 130/70 Blood Pressure Location Rt brachial Position Sitting Pulse 88 Pulse Source Pulse Oximeter Pulse Oximetry (%) 98 Oxygen Delivery Method Room Air Intake Visit Reasons: 1 MO FU-[facility] Nonfarm Animal Caretaker Required: No Accompanied by: Self / Same As Patient Allergies [place] And Derivatives Allergy (Severe, Verified 05/18/25 10:21) Anaphylaxis HPI Comments Details: I had the privilege of seeing Danyelle in follow up for CKD. She is a 75-year-old female who had been living between [place], [place] and [place] with H/O Sjogren's syndrome who takes MMF for it. She is not a diabetic but has hypertension for which she is on chlorthalidone .She has H/O losartan and amlodipine intake but not taking anymore. She has bilateral knee pain but denies taking excess NSAID's. She has H/O UTI's but denies fever, chills, hematuria or edema. She denies retinopathy, CAD, carotid stenosis, CVA, CHF or PAD. She has no H/O orthostatic drop in blood pressure, PND, orthopnea, chest pain, palpitations or proteinuria. Her last serum creatinine has been 1.25 . Her IgG levels has been high. [facility] Medical History (Updated 05/05/25 @ 09:39 by Pamela Hurt, [facility]) Colonic polyp Family history of skin conditions Autoimmune disorder Diabetes Hypertension JOSE (generalized anxiety disorder) Surgical History History of colonoscopy (~2020) No pertinent past surgical history Social History Household Members: Family Household Members Other:: HAS 2 DAUGHTERS Housing: Apartment Alcohol intake: never Patient Tobacco Use Status: Never used Tobacco e-Cigarette/Vaping Use: Never Used Second Hand Smoke Exposure: No service: No Current occupational status: retired Current occupational exposures/hazards: No Sexual orientation: Straight/Heterosexual Gender identity: Female Cognitive needs: No Hearing needs: No Vision needs: Yes (wears glasses) Review of Systems Const All systems reviewed & are unremarkable except as noted in HPI and below Physical Exam Vital Signs: Last Vital Signs Pulse 88 05/18/25 10:21 BP 130/70 05/18/25 10:21 Pulse Ox 98 05/18/25 10:21 Oxygen Delivery Method Room Air 05/18/25 10:21 BMI result Body Mass Index 32.5 Const General: comfortable and no acute distress Orientation/consciousness: patient oriented x3 HEENT Head: Yes normocephalic Mouth: Normal oral and palatal mucosa present Eyes EOM: EOMs intact bilaterally Neck Neck: Yes supple Resp Auscultation: clear to auscultation bilaterally Cardio Jugular venous distension: no JVD Rate: regular rate GI Palpation (GI): Soft to palpation Auscultation: normal bowel sounds General: Yes no CVA tenderness Back/Spine/Pelvis Back: no CVA tenderness Skin General skin exam: no rashes or lesions noted Neuro General: patient oriented x3 and moves all extremities Extrem General: Yes no pedal edema Results Reviewed Nephrology Results: Hgb, (12.0-16.0) 11.1 g/dl L 04/15/25 WBC, (4.8-10.8) 8.8 X10*3/uL 04/15/25 Plt Count, (160-400) 238 X10*3/uL 04/15/25 Sodium, (135-145) 142 mmol/L 03/02/25 Potassium, (3.3-5.1) 3.7 mmol/L 03/02/25 Chloride, (96-108) 109 mmol/L H 03/02/25 Carbon Dioxide, (22-29) 28 mmol/L 03/02/25 BUN, (9-16) 17 mg/dL H 03/02/25 Creatinine, (0.5-1.4) 1.25 mg/dL 03/02/25 Calcium, (8.4-10.2) 9.3 mg/dL 03/02/25 PTH Intact, (8.7-77.1) 120.3 pg/mL H 04/15/25 Urine Protein, (Neg-Trace) Negative mg/dL 04/22/25 Urine Creatinine 84.93 mg/dL 04/22/25 Protein/Creatinin Ratio TNP 04/22/25 Renal US 04/29/25 Assessment & Plan Assessment & Plan (1) Hypertension: Code(s): I10 - Essential (primary) hypertension Category: Medical Qualifiers: Hypertension type: primary hypertension Qualified Code(s): I10 - Essential (primary) hypertension (2) CKD (chronic kidney disease) stage 3, GFR 30-59 ml/min: Code(s): N18.30 - Chronic kidney disease, stage 3 unspecified Category: Medical Qualifiers: Chronic kidney disease stage 3 subtype: stage 3a (GFR 45-59) Qualified Code(s): N18.31 - Chronic kidney disease, stage 3a Plan Danyelle has CKD 3. Her last serum creatinine was 1.25. She has hypertension and H/O ACEI but not on it now. She is just on Chlorthalidone now. Her BP is at goal. She has Sjogrens and is on MMF. She has no proteinuria. Her IgG levels are high. She will benefit from Hematology consult( has H/O anemia as well). I shall consider initiating her on low dose ACEI with time. There is no indication for renal biopsy now. She should minimize NSAID's and maintain good hydration. She is a potential candidate for SGLT2i in the future. Further management is pending evolving data Orders: Orders Blood Urea Nitrogen 4 Months I10 - Essential (primary) hypertension, N18.31 - Chronic kidney disease, stage 3a Electrolytes 4 Months I10 - Essential (primary) hypertension, N18.31 - Chronic kidney disease, stage 3a Immunofixation Pnl, Serum 4 Months I10 - Essential (primary) hypertension, N18.31 - Chronic kidney disease, stage 3a Creatinine 4 Months I10 - Essential (primary) hypertension, N18.31 - Chronic kidney disease, stage 3a Calcium 4 Months I10 - Essential (primary) hypertension, N18.31 - Chronic kidney disease, stage 3a Coding Level of Care Code Est Pt Level 4 (48002) Diagnoses Primary hypertension I10 Hypertension type: primary hypertension Stage 3a chronic kidney disease N18.31 Chronic kidney disease stage 3 subtype: stage 3a (GFR 45-59)
[2025-05-18 10:21] VITALS: BP 130/70; PULSE 88; O2SAT 98; BMI 32.5
--- OUTSIDE RECORDS SUMMARY | 2025-05-18 10:44 | XMS_ITS | Patient Health Record ---
Author Organization [facility] Address [address] [place] [address] Care Team Providers Care Manufacturing Management Associate Name Role Phone CHAPIS CARNES Primary Care Provider [phone] Reason For Referral No Information Plan Of Treatment No Information Insurance Providers Payer Name Payer Address Payer Phone Subscriber Number Group Number Insured Name Patient Relationship to Insured Coverage Start Date Coverage End Date COVID19 HRSA Uninsured Testing and Treatment CARES Act Provider Relief Fund [address] [address] [place] [address] [id number] Danyelle Hughes Self - patient is the insured 1 2
--- OUTSIDE RECORDS SUMMARY | 2025-05-18 10:44 | XMS_ITS | Clinical Summary ---
Author Organization [facility] Address [address] [place], [place] [address] Phone Care Team Providers Care Repair Table Operator Name Role Phone Unknown, Unknown MD Unavailable Unavailable Unknown, Unknown Primary Care Provider Verna lin Allergies Active Allergy Reactions Criticality Noted Date Comments [place] And Derivatives Hives 07/28/2012 Medications hydroxychloroqu ine [...] Active ferrous sulfate 325 mg (65 mg [place] iron) tablet Take 325 mg by mouth [...] EDT Office Visit [facility] [address] [place] [address] [place] [address] Stewart Todd DO [address] [facility] [place] [address] [email or web address] Health Maintenance Due Date Last Done Comments [...] EDT) TSH 1.09 0.27 - 4.20 uIU/mL [facility] Blood 02/16/2018 12:1 2 PM EDT 02/16/2018 12:14 PM EDT us Surendra Rojas MD LAB BLOOD ORDERABLES Final Resu lt Performing Organization Address [facility]/ZIP Co de Phone Number [address] [address] * Basic metabolic panel (02/16/2018 12:12 PM EDT) SODIUM 140 133 - 146 mmol/L [facility] CHLORIDE 104 96 - 108 mmol/L [facility] POTASSIUM 5.0 3.3 - 5.1 mmol/L [facility] CO2 28 21 - 35 mmol/L [facility] BUN 12 6 - 19 mg/dL [facility] CREATININE 0.90 0.5 - 1.5 mg/dL [facility] GLUCOSE 89 70 - 99 mg/dL [facility] CALCIUM 9.7 8.4 - 10.3 mg/dL [facility] EGFR 66 >59 mL/min/1.7 3m2 [facility] Comment:If patient is black, multiply result by 1.159. The eGFR calculation has changed from the MDRD equation to the CKD-EPI equation as of December 02, 2017. ANION GAP 13 10 - 20 mmol/L [facility] Blood 02/16/2018 12:1 2 PM EDT 02/16/2018 12:14 PM EDT us Surendra Rojas MD LAB BLOOD ORDERABLES Final Resu lt Performing Organization Address [facility]/ZIP Co de Phone Number [address] [address] from Last 3 Months or Most Recently Relevant to Health Maintenance Insurance [place] BLUE REPLACEMENT MEDICARE PPO BLUE REPLACEMENT MEDICARE PPO [place] [address] [address] [place] [address] MED[address] [address] [address] [place] [address] MEDICARE PPO BLUE RE[place]ACEMENT [place] Care Teams Repair Table Operator Relationship Specialty Start Date End Date Unknown, Unknown, PCP - General 01/18/20 Unknown, Unknown, 12/25/17 Additional Source Comments The information contained in this document represents components of the legal health record. It is not the complete legal health record.[facility]
== END 2025-05-18 10:37 | disposition home or self-care (01) ==
LOC: HO.HKA 09:54
PROVIDERS: PCP Nurse Practitioner Family; Visit Provider Internal Medicine Nephrology
DX: I10 Essential (primary) hypertension (principal); N18.31 Chronic kidney disease, stage 3a
CPT/HCPCS: 99214

== ENCOUNTER → 2025-05-18 09:53 | Outpatient (BNVA) | payer MEDICARE, SELFPAY | PROVIDERS: PCP Nurse Practitioner Family; Visit Provider Internal Medicine Nephrology | DX: I12.9 Hypertensive chronic kidney disease with stage 1 through stage 4 chronic kidney disease, or unspecified chronic kidney disease (principal); N18.31 Chronic kidney disease, stage 3a | CPT/HCPCS: 99212 ==

== ENCOUNTER → 2025-08-08 11:20 | Outpatient (BNV) | payer MEDICARE, SELFPAY | PROVIDERS: Visit Provider Internal Medicine Medical Oncology | DX: D89.0 Polyclonal hypergammaglobulinemia (principal); D64.9 Anemia, unspecified | CPT/HCPCS: 99204 ==

== ENCOUNTER 2025-08-19 15:29 | Outpatient (AMB) | payer MEDICARE, SELFPAY ==
[2025-08-19 15:33] VITALS: BP 138/67; PULSE 91; O2SAT 99; BMI 31.4
--- NOTE | 2025-08-19 15:33 | MHC.OFFVIS ---
Vital Signs 08/19/25 15:33 Height 5 ft 4 in Weight 183 lb BMI 31.4 BP 138/67 Blood Pressure Location Lt brachial Position Sitting Pulse 91 Pulse Source Pulse Oximeter Pulse Oximetry (%) 99 Oxygen Delivery Method Room Air Intake Visit Reasons: Cough Allergies [place] And Derivatives Allergy (Severe, Verified 08/08/25 11:35) Anaphylaxis HPI HPI Cough: Details: 75-year-old lady, nonsmoker, with underlying diagnosis of Sjogren on CellCept referred for pulmonary evaluation. Patient denies any pulmonary related concerns or complaints at this time. She states that she used to be followed up by weight count operator for possible bronchiectasis remotely with no recent CT chest or pulmonary function tests available. She denies family history of lung disease. She denies exposure to industrial dusts. She used to be employed as a nurse. [facility] Medical History (Updated 08/19/25 @ 15:47 by Adam Slater MD) Colonic polyp Family history of skin conditions Autoimmune disorder Diabetes Hypertension JOSE (generalized anxiety disorder) Surgical History History of colonoscopy (~2020) No pertinent past surgical history Social History Household Members: Family Household Members Other:: HAS 2 DAUGHTERS Housing: Apartment Are you a primary ambulatory care nurse to a significant other at home: No Do you presently have visiting nurse or other home services: No Alcohol intake: never Patient Tobacco Use Status: Never used Tobacco e-Cigarette/Vaping Use: Never Used Second Hand Smoke Exposure: No service: No Current occupational status: retired Current occupational exposures/hazards: No Sexual orientation: Straight/Heterosexual Gender identity: Female Cognitive needs: No Hearing needs: No Vision needs: Yes (wears glasses) Review of Systems Const Denies daytime sleepiness, Denies excessive sweating, Denies fatigue, Denies fever(s), Denies lethargy, Denies malaise, Denies night sweats, Denies snoring and Denies weight loss Eyes Denies blurry vision and Denies itchy eyes ENT Denies nasal congestion, Denies post nasal drip, Denies sinus pain, Denies sinus pressure and Denies other ( Thrush) Card Denies chest pain, Denies pedal edema, Denies dyspnea, Denies orthopnea and Denies paroxysmal nocturnal dyspnea Resp Denies cough, Denies hemoptysis, Denies excessive phlegm production, Denies dyspnea, Denies snoring and Denies wheezing GI Denies abdominal pain and Denies heartburn Musc Denies myalgias, Denies arthralgias and Denies joint swelling Skin/Breast Denies rash Neuro Denies memory loss and Denies seizure-like activity Psych Denies abnormal sleep pattern, Denies anxiety and Denies memory loss Endo Denies excessive sweating, Denies fatigue and Denies heat intolerance Arik/Lymph Denies easy bruising Aller/Immun Denies itchy eyes, Denies seasonal rhinorrhea and Denies wheezing Physical Exam Vital Signs: Last Vital Signs Pulse 91 08/19/25 15:33 BP 138/67 08/19/25 15:33 Pulse Ox 99 08/19/25 15:33 Oxygen Delivery Method Room Air 08/19/25 15:33 BMI result Body Mass Index 31.4 Const General: no acute distress and alert Nutritional Appearance: not obese Orientation/consciousness: Other orientation findings ( oriented) HEENT Head: Yes atraumatic Eyes General: appearance normal, both eyes and all related structures Sclerae: sclerae normal EOM: EOMs intact bilaterally Neck Neck: Yes supple Lymphatic: no lymphadenopathy noted Resp Effort & Inspection: normal respiratory effort and no use of accessory muscles Auscultation: clear to auscultation bilaterally Cardio Rate: regular rate Rhythm: regular rhythm Heart sounds: no gallops, no murmurs and no rubs Skin General skin exam: other ( warm) Extrem General: No clubbing, No cyanosis and No edema Assessment & Plan Assessment & Plan (1) Sjogren's disease: Onset Date: ~2011 Code(s): M35.00 - Sjogren syndrome, unspecified Category: Medical Qualifiers: Sjogren organ or system involvement: unspecified organ involvement Qualified Code(s): M35.00 - Sjogren syndrome, unspecified Plan: With possible pulmonary involvement. Will obtain CT chest and pulmonary function test for further evaluation. (2) Bronchiectasis: Code(s): J47.9 - Bronchiectasis, uncomplicated Category: Medical Plan: No recent exacerbations. Continue to monitor clinically. Coding Level of Care Code New Pt Level 4 (79295) Diagnoses Sjogren's syndrome, with unspecified organ involvement M35.00 Sjogren organ or system involvement: unspecified organ involvement Bronchiectasis J47.9
--- OUTSIDE RECORDS SUMMARY | 2025-08-19 15:35 | XMS_ITS | Clinical Summary ---
Author Organization [facility] Address [address] [place], [place] [id number] Phone Care Team Providers Care Senior Scientist Name Role Phone Unknown, Unknown MD Unavailable Unavailable Unknown, Unknown Primary Care Provider Verna lin Allergies Active Allergy Reactions Criticality Noted Date Comments [place] And Derivatives Hives 07/28/2012 Medications hydroxychloroqu ine [...] Active ferrous sulfate 325 mg (65 mg [place] iron) tablet Take 325 mg by [...] 02/16/2018 11:27 AM EDT Plan of Treatment Health Maintenance Due Date Last Done Comments [...] VACCINE (1 - 1-dose 75+ series) 2025 INFLUENZA VACCINE (#1) 2025 Adult Td,Tdap Booster 06/10/2028 06/10/2018, 006 [...] PM EDT Acquired hypothyroidism BASIC METABOLIC PANEL (BMP) Routine 02/16/2018 12:12 PM EDT Benign essential hypertension from Last 3 Months or Most Recently Relevant to Health Maintenance Results * TSH with reflex (02/16/2018 12:12 PM EDT) TSH 1.09 0.27 - 4.20 uIU/mL [facility] Blood 02/16/2018 12:1 2 PM EDT 02/16/2018 12:14 PM EDT us Surendra Rojas MD LAB BLOOD BKR ORDERABLES Final Result [facility] [address] [place] [address] * Basic metabolic panel (02/16/2018 12:12 PM EDT) SODIUM 140 133 - 146 mmol/L [facility] CHLORIDE 104 96 - 108 mmol/L [facility] POTASSIUM 5.0 3.3 - 5.1 mmol/L [facility] CO2 28 21 - 35 mmol/L [facility] BUN 12 6 - 19 mg/dL [facility] CREATININE 0.90 0.5 - 1.5 mg/dL [facility] GLUCOSE 89 70 - 99 mg/dL [facility] CALCIUM 9.7 8.4 - 10.3 mg/dL [facility] EGFR 66 >59 mL/min/1.7 3m2 [facility] Comment:If patient is black, multiply result by 1.159. The eGFR calculation has changed from the MDRD equation to the CKD-EPI equation as of December 02, 2017. ANION GAP 13 10 - 20 mmol/L [facility] Blood 02/16/2018 12:1 2 PM EDT 02/16/2018 12:14 PM EDT us Surendra Rojas MD LAB BLOOD BKR ORDERABLES Final Result [address] [address] from Last 3 Months or Most Recently Relevant to Health Maintenance Insurance MEDICARE PART A & B MEDICARE PART A & B Member Subscriber Plan / Payer [facility] Name:Danyelle Hughes Member ID:[id number] Relation to Subscriber:Self Name:Danyelle Hughes Subscriber ID:[id number] Payer ID:[id number] Group ID:Not on file Type:Medicare Address: Exclusively.in [address] [place] [address] MEDICARE PART A & B Member Subscriber Plan / Payer ([facility]Present) Name:Danyelle Hughes Member ID:[id number] Relation to Subscriber:Self Name:Danyelle Hughes Subscriber ID:[id number] Payer ID:[id number] Group ID:Not on file Type:Medicare Address: Exclusively[employer]in [address] [place] [address] MEDICARE PART A & B MEDICARE PART A & B MEDICARE PART A & B Care Teams Senior Scientist Relationship Specialty Start Date End Date Unknown, Unknown, PCP - General 01/18/20 Unknown, Unknown, 12/25/17 Additional Source Comments The information contained in this document represents components of the legal health record. It is not the complete legal health record.[facility]
--- OUTSIDE RECORDS SUMMARY | 2025-08-19 15:35 | XMS_ITS | Patient Health Record ---
Author Organization [facility] Address [address] [place] [address] Care Team Providers Care Registered Nurse Hh Case Manager Name Role Phone CHAPIS CARNES Primary Care Provider Reason For Referral No Information Plan Of Treatment No Information Insurance Providers Payer Name Payer Address Payer Phone Subscriber Number Group Number Insured Name Patient Relationship to Insured Coverage Start Date Coverage End Date COVID19 HRSA Uninsured Testing and Treatment CARES Act Provider Relief Fund [address] [address] [place] [address] [id number] Danyelle Hughes Self - patient is the insured 1 2
== END 2025-08-19 15:46 | disposition home or self-care (01) ==
LOC: HO.HPS 15:30
PROVIDERS: PCP Nurse Practitioner Family; Visit Provider Internal Medicine Pulmonary Disease
DX: M35.00 Sjogren syndrome, unspecified (principal); J47.9 Bronchiectasis, uncomplicated
CPT/HCPCS: 99204

== ENCOUNTER → 2025-08-19 15:29 | Outpatient (BNVA) | payer MEDICARE, SELFPAY | PROVIDERS: PCP Nurse Practitioner Family; Visit Provider Internal Medicine Pulmonary Disease | DX: J47.9 Bronchiectasis, uncomplicated (principal); M35.00 Sjogren syndrome, unspecified | CPT/HCPCS: 99202 ==

== ENCOUNTER 2025-09-02 08:22 | Outpatient (REF) | payer MEDICARE, SELFPAY ==
[2025-09-02 11:51] LABS: Hematocrit 38.7 % (37.0-47.0); Hemoglobin 11.8 g/dl (12.0-16.0); Mean Corpuscular HGB Conc 30.5 g/dl (31.0-35.0); Mean Corpuscular Hemoglobin 24.7 pg (27.0-33.0); Mean Corpuscular Volume 81.0 fL (80.0-98.0); NRBC Abs Auto 0.000 X10*3/uL (0.0-0.012); NRBC Pct Auto 0.0 /100WBC (0.0-0.2); Platelet Count 209 X10*3/uL (160-400); Red Blood Count 4.78 X10*6/uL (4.20-5.50); White Blood Count 7.8 X10*3/uL (4.8-10.8)
[2025-09-02 12:29] LABS: Alanine Aminotransferase 25 U/L (0-31); Albumin Level 4.0 g/dL (3.5-5.0); Alkaline Phosphatase 92 U/L (39-117); Anion Gap 10 (12-20); Aspartate Amino Transferase 30 U/L (5-31); Blood Urea Nitrogen 17 mg/dL (9-16); Calcium 9.3 mg/dL (8.4-10.2); Carbon Dioxide 28 mmol/L (22-29); Chloride 108 mmol/L (96-108); Cholesterol 197 mg/dL (<200); Estimated Glomerular Filt Rate 44; HDL Cholesterol 44 mg/dL (>40); Iron 64 mcg/dL (30-160); Percent Iron Saturation 22 % (15-50); Potassium 3.4 mmol/L (3.3-5.1); Sodium 143 mmol/L (135-145); Total Iron Binding Capacity 289 mcg/dL (228-428); Total Protein 8.3 g/dL (6.5-8.0); Triglycerides 110 mg/dL (<150); Unsaturated Iron Binding 225 ug/dL
[2025-09-02 12:42] LABS: Folate 10.4 ng/mL (> or = 4.0); Vitamin B12 670 pg/mL (200-900)
[2025-09-02 12:46] LABS: Ferritin 53 ng/mL (10-250)
[2025-09-02 12:59] LABS: Anion Gap 10 (12-20); Blood Urea Nitrogen 17 mg/dL (9-16); Calcium 9.7 mg/dL (8.4-10.2); Carbon Dioxide 28 mmol/L (22-29); Chloride 108 mmol/L (96-108); Estimated Glomerular Filt Rate 46; Potassium 3.4 mmol/L (3.3-5.1); Sodium 143 mmol/L (135-145)
[2025-09-02 14:38] LABS: Appearance Urine Clear; Glucose Urine UA Negative (Negative); PH 5.5 (5.0-9.0); Specific Gravity - Urine 1.015 (1.005-1.025); UMIC TRIGGER UACC YES
== END 2025-09-02 08:23 | disposition home or self-care (01) ==
LOC: HO.LNP 08:22
PROVIDERS: Internal Medicine Nephrology; PCP Nurse Practitioner Family; Visit Provider Nurse Practitioner Family
DX: I10 Essential (primary) hypertension (principal); N18.31 Chronic kidney disease, stage 3a; D64.9 Anemia, unspecified; N18.30 Chronic kidney disease, stage 3 unspecified; E03.9 Hypothyroidism, unspecified; R73.03 Prediabetes; E55.9 Vitamin D deficiency, unspecified; F41.1 Generalized anxiety disorder; F33.0 Major depressive disorder, recurrent, mild; R82.90 Unspecified abnormal findings in urine; Z13.31 Encounter for screening for depression; Z13.39 Encounter for screening examination for other mental health and behavioral disorders; Z23 Encounter for immunization; R41.3 Other amnesia; R26.81 Unsteadiness on feet; M25.552 Pain in left hip; E66.2 Morbid (severe) obesity with alveolar hypoventilation; Z68.34 Body mass index [BMI] 34.0-34.9, adult; J45.20 Mild intermittent asthma, uncomplicated; D89.0 Polyclonal hypergammaglobulinemia
CPT/HCPCS: 80051; 80053; 80061; 81001; 82306; 82310; 82565; 82607; 82728; 82746; 82784; 83540; 84443; 84520; 85027; 86334; 90471; 90656; 96127; 99212

== ENCOUNTER 2025-09-02 08:22 | Outpatient (AMB) | payer MEDICARE, SELFPAY ==
--- NOTE | 2025-09-02 08:24 | A.OFFPC_ITS ---
Vital Signs 09/02/25 08:29 Height 5 ft 4 in Weight 183 lb 6 oz BMI 31.5 BP 132/70 Blood Pressure Location Lt brachial Position Sitting Respiration 13 Pulse 8 L Pulse Source Pulse Oximeter Temp 97.6 F Temp Source Oral Pulse Oximetry (%) 100 Oxygen Delivery Method Simple Mask Intake Visit Reasons: 6 months 30 min Intake Note: 6 Months follow up. Apartment Rental Agent Required: No Information Assistant: Present Accompanied by: Daughter Allergies [place] And Derivatives Allergy (Severe, Verified 09/02/25 08:37) Anaphylaxis Medication List - Last Reconciled 09/02/25 by Pamela Hurt, INFECTION PREVENTION COORDINATOR- albuterol sulfate 5 mg inhalation QID PRN blood sugar diagnostic (Blood Glucose Test strips) As directed chlorthalidone 25 mg PO DAILY lancing device (Auto-Lancet Mini) As directed levothyroxine 50 mcg PO DAILY mycophenolate mofetil 500 mg PO BID nitrofurantoin monohyd/m-cryst 100 mg (Macrobid) 100 mg PO Q12H 7 days ondansetron HCl 4 mg PO Q8H PRN sertraline 25 mg PO DAILY Tobacco use date assessed: 09/02/25 Fall risk assessment: No Falls in past year Last assessed Fall Risk: 09/02/25 Dental Screening Dental Screen Date: 09/02/25 Did you have a dental visit in the last 12 months?: Yes Did you have a dental problem in the last 6 months where you did not have access to dental care?: No Was dental information given to patient?: Patient has dentist HPI HPI Comments History of Present Illness Details 75 y/o F with Sjorgens w lung involvemen t, obesity, MDD, JOSE, Hypothyroid, HTN, Prediabetes, CKD3, Vit D def, Chronic anemia, osteopenia, bronchiectasis, chronic idiopathic urticaria, mild intermittent asthma, sickle cell trait, chronic tinnitus and sensorineural hearing loss requiring hearing aides, polyclonal gammopathy Surgery -s/p Left knee arthroscopy, breast bx L, L knee meniscus repair, tubal ligation Fhx: Dtr w/ lupus, MGM breast ca, Brother & Dad with cancer? & PVD, clotting disorder sister, Mom DM & HTN Health Maintenance: Mammo states done 2023 [place] PAP unsure Colon 2020 repeat 7 years Tdap 2018 DEXA 2020 Osteopenia Flu 09/02/25 Specialists: Rheumatology Optho Pulm Derm heme: Her IgG levels are high. She will benefit from Hematology consult( has H/O anemia as well) 07/2025 The polyclonal gammopathy is likely related to her underlying collagen vascular disorder: Sjogren syndrome, rto 6 mo History of Present Illness The patient is a 75 year old female presenting for a routine 6-month chronic disease management visit and evaluation of memory concerns. Here with her Dtr. Short-term Memory Impairment: - The patient's daughter is concerned ab out her mother's short-term memory, noting she forgets conversations that occurred minutes or the day before. - The daughter also reports the patient forgets appointments and phone reminders with increasing frequency. - The patient's long-term memory is fine , and she remembers significant personal information. - The patient herself feels her memory i s pretty good but is open to testing d ue to her daughter's concerns. Anxiety and Depression: - The patient has a history of anxiety a nd depression and is prescribed sertraline. - Her sertraline dose was previously red uced while she was in [place]. - The patient feels the current dose is not effective and reports it does not help her sleep well. Taking dose around noon, does make her feel groggy. - She reports feeling isolated but denie s feeling withdrawn. - She has been seeing a counselor for ab out six months, but her therapist is leaving the practice, and she will be reassigned. Sjogren's Syndrome with lung involvement: - The patient has a history of Sjogren's syndrome with lung involvement and is followed by the pulmonology team at [facility]. - Her application development team lead, Dr. Slater, ordered a CT of the chest on September 18, which has not yet been scheduled. - She has a follow-up appointment with Emily Slater on September 30. - She takes mycophenolate for this condi tion. Polyclonal gammopathy & Chronic anemia: - Her IgG levels were recently noted to be elevated, and a hematology consultation in July concluded she has a polyclonal gammopathy likely related to her underlying Sjogren's syndrome. - She is scheduled to return to [facility] in six months for reevaluation. Unsteady Gait and Fall Risk: - The patient's daughter expressed curio sity about physical therapy for balance. - The patient reports that she sometimes gets her balance off a little bit. - She has a history of osteopenia, which increases her risk associated with falls. HTN, Hypothyroid and CKD are stable. She is taking meds as directed. She is due for labs. Obesity with BMI 31.5 Past Medical History - Sjogren's syndrome with lung involveme nt - Chronic kidney disease - Hypertension - Anxiety and depression - Hypothyroidism - Prediabetes - Obesity (BMI 31.5) - Polyclonal gammopathy - Osteopenia - History of frequent urinary infections - Social history: The patient was displa lu from her home and notes her siblings have not been very supportive. Review of Systems - Neurological: Daughter reports short-t erm memory loss, including forgetting conversations and appointments. Patient reports feeling her memory is good but notes some issues with balance. Denies forgetting names of close family members. - Psychiatric: Reports feeling isolated. Denies feeling withdrawn. Reports poor sleep, which she attributes to a reduced dose of her antidepressant. Reports drowsiness when taking sertraline around noon. - Musculoskeletal: Reports left hip pain when walking at home without shoes. Denies back pain. Physical Exam General: Well developed, well nourished, in no acute distress. Appears stated age. Accompanied by Dtr Head: Normocephalic, atraumatic. Eyes: Pupils are equal, round and reactive to light and accommodation. Conjunctivae are clear. Lungs: Dim throughout, no cough. Heart: Regular rate and rhythm. No murmurs, click, rubs or gallops are noted. Musculoskeletal: Joints are nontender, without swelling, redness, or effusions. Some instability in the legs noted with tandem, toe and heel walking, likely due to strength rather than neurological issues. Pulses: Peripheral pulses are equal and palpable bilaterally. Extremities: No clubbing, cyanosis nor edema is noted. Neuro: AOx3, ORTEGA x 4, normal strength, tone, reflexes, CN intact. Psych: Mood and affect appropriate. Reports of anxiety and depression, currently on sertraline. Memory concerns noted, with short-term memory lapses. Mood is reportedly stable, but there is a feeling of isolation. Results - Labs: Recent labs showed elevated IgG levels. Hematology workup in July revealed polyclonal gammopathy, likely related to underlying Sjogren's syndrome. - Imaging: A CT of the chest was ordered by pulmonology on Aug 19 but has not yet been scheduled. Medical Decision Making The patient is a 75-year-old female with multiple chronic conditions who presented for a routine management visit. The primary new concern, raised by her daughter, is a decline in short-term memory. The differential diagnosis for her memory changes is broad and includes pseudo- dementia from undertreated depression, hypothyroidism, urinary tract infection, and primary neurocognitive decline. The patient's sertraline dose was previously reduced while in [place] and she currently feels it is insufficient, correlating with poor sleep. Therefore, the initial plan is to screen for reversible causes with labs and to optimize her depression treatment by increasing the sertraline dose to 50 mg daily, which she should take at . Given the long wait times for specialists, a neurology consultation will be placed preemptively and can be cancelled if her symptoms resolve with these interventions. Her physical exam revealed some gait instability, which appears more related to deconditioning than a primary neurological issue. Considering her history of osteopenia, fall prevention is crucial, and a physical therapy consultation is warranted to improve strength and balance. They can help w/ L hip pain, too. Her other chronic conditions appear stable, and management will continue with medication refills and ensuring she completes the pending CT chest for her pulmonology follow-up. Plan 1. Short-Term Memory Impairment - Will order labs to evaluate for revers ible causes of memory changes. - Placed a referral for a neurology cons ultation. - Pending lab results, will follow up in 6-8 weeks to re-evaluate symptoms. 2. Anxiety And Depression - Increase sertraline from 25 mg to 50 m g once daily. - Instructed patient to take sertraline at bedtime to help with sleep and mitigate daytime drowsiness. - The patient will be reassigned a new c ounselor as her current one is leaving the practice. - Follow-up scheduled in 6-8 weeks to as sess response to the dose increase. 3. Unsteady Gait And Osteopenia and L hi p pain - Placed a consultation for physical the rapy for balance and fall prevention. 4. Sjogren's Syndrome With Lung Involvem ent - Patient instructed to follow up on digna eduling her CT scan of the chest before her pulmonology appointment in September. - Continue mycophenolate as prescribed. 5. Polyclonal Gammopathy & Chronic anem ia - Return to hematology office in 6 month s for reevaluation. 6. Hypertension - Blood pressure is well-controlled. Sen t refill for chlorthalidone. 7. Hypothyroidism - Continue levothyroxine as prescribed. Thyroid function will be checked with today's labs. 8. Health Maintenance - Administered influenza vaccine today. - Patient has not yet been able to sched ule an appointment with dermatology, asked dtr to arrange this. Patient Instructions - Your dose of sertraline has been incre ased to 50 mg. Please take one tablet at bedtime to help with sleep. - If you have any 25 mg sertraline table ts left, you may take two of them at bedtime to finish your supply before starting the new 50 mg tablets. - Please get your blood work and provide a urine sample today in the lab. - You will receive a flu shot today befo re you leave. - We have put in referrals for Physical Therapy and Neurology. You should expect to receive phone calls from them to schedule appointments. - Please call to schedule the CAT scan o f your chest that your lung doctor, Dr. Slater, ordered. This needs to be done before your appointment with him in September. - Please schedule a follow-up appointmen t here in about 6 to 8 weeks to check on how you are doing with the medication change. Consent The patient provided verbal consent to receive the influenza vaccine during the visit. Patient was informed and verbally consented to the use of an ambient scribe for clinic note documentation during this visit. Total time spent caring for the patient today was 40 minutes. This includes time spent before the visit reviewing the chart, time spent during the visit, and time spent after the visit on documentation, reviewing laboratory results, diagnostic imaging, medications, performing a medically necessary evaluation, counseling on diagnoses, care coordination, ordering appropriate tests, ordering appropriate medications, review of tests performed by other providers, reporting test results with the patient, communication with other healthcare providers. [facility] Medical History (Updated 09/02/25 @ 09:00 by IZABELA Shay) Autoimmune disorder Colonic polyp Fall Family history of skin conditions JOSE (generalized anxiety disorder) High total IgG Hypertension Surgical History (Updated 08/08/25 @ 12:26 by Shana Stallworth MD) History of colonoscopy (~2020) No pertinent past surgical history Social History (Reviewed 08/19/25 @ 15:37 by YURIDIA Judd Household Members: Family Household Members Other:: HAS 2 DAUGHTERS Housing: Apartment Are you a primary restorative care technician to a significant other at home: No Do you presently have visiting nurse or other home services: No Alcohol intake: never Patient Tobacco Use Status: Never used Tobacco e-Cigarette/Vaping Use: Never Used Second Hand Smoke Exposure: No service: No Current occupational status: retired Current occupational exposures/hazards: No Sexual orientation: Straight/Heterosexual Gender identity: Female Cognitive needs: No Hearing needs: No Vision needs: Yes (wears glasses) Questionnaire PHQ-9 Over the last 2 weeks, how often have you been bothered by any of the following problems? 1. Little interest or pleasure in doing things: not at all 2. Feeling down, depressed, or hopeless: not at all 3. Trouble falling or staying asleep, or sleeping too much: not at all 4. Feeling tired or having little energy: not at all 5. Poor appetite or overeating: not at all 6. Feeling bad about yourself - or that you are a failure or have let yourself or your family down: not at all 7. Trouble concentrating on things, such as reading the newspaper or watching television: not at all 8. Moving or speaking so slowly that other people could have noticed. Or the opposite - being so fidgety or restless that you have been moving around a lot more than usual: not at all 9. Thoughts that you would be better off or of hurting yourself in some way: not at all Total score: 0 Depression Screening Interpretation: Negative Depression Screening Done: Yes 06333 - PHQ-9 Billing: Yes Source: Developed by Drs. Markos Arreola, Herlinda Gannon, Quincy Schaeffer and colleagues, with an educational benedict from [employer]. Thrive Questionnaire Date Thrive assessed: 09/02/25 I am a: Patient What is your living situation today?: I choose not to answer this question Within the past 12 months, did the food you bought not last and you didn't have the money to get more?: Never true Within the past 12 months, did you worry whether your food would run out before you got money to buy more?: Never true Do you have trouble paying for medicines?: No Do you have trouble getting transportation to medical appointments?: Yes Do you have trouble paying your heating and electricity bill?: No Do you have trouble taking care of your child, family member or friend?: No Do you have trouble with day-to-day activities such as bathing, preparing meals, shopping, managing finances, etc.?: No Are you currently unemployed and looking for a job?: No Are you interested in more education?: I choose not to answer this question Currently or been in a relationship where the following occur: No concerns reported THRIVE Score: 1 JOSE-7 AMB Questionnaire JOSE-7 Date JOSE - 7 assessed: 09/02/25 Feeling nervous, anxious, or on edge: 0 = Not at all Not being able to stop or control worryin = Not at all Worrying too much about different things: 0 = Not at all Trouble relaxin = Not at all Being so restless that it is hard to sit still: 0 = Not at all Becoming easily annoyed or irritable: 0 = Not at all Feeling afraid as if something awful might happen: 0 = Not at all Total JOSE-7 score (0-4 normal; 5-9 mild; 10-14 moderate; 15-21 severe): 0 Source: Developed by Drs. Markos Arreola, Herlinda Gannon, Quincy Schaeffer and colleagues, with an educational benedict from [employer]. JOSE-7 Assessment Billing JOSE-7 Assessment Tool: JOSE-7 Assessment 54935 Physical exam (Primary Care) Vital Signs: Last Vital Signs Temp 97.6 F 09/02/25 08:29 Pulse 8 L 09/02/25 08:29 Resp 13 09/02/25 08:29 BP 132/70 09/02/25 08:29 Pulse Ox 100 09/02/25 08:29 Oxygen Delivery Method Simple Mask 09/02/25 08:29 BMI result Body Mass Index 31.5 Tobacco/Smoking Status: Tobacco use Status Tobacco use date assessed 09/02/25 09/02/25 08:25 Patient Tobacco Use Status Never used Tobacco 09/02/25 08:25 e-Cigarette/Vaping Use Never Used 09/02/25 08:25 PHQ-9: PHQ-9 Score PHQ-9: Total score 0 09/02/25 08:32 Depression Screening Interpretation: Negative Thrive Assessment: Date of Thrive Assessment Date Thrive assessed 09/02/25 09/02/25 08:25 Currently or been in a relationship where the following occur: No concerns reported Office Procedures Flu Questionnaire Does the patient have a severe egg allergy?: No Does the patient have severe life threatening allergies?: No Does the patient have a fever or illness today?: No Has the patient ever had Guillain-[place] Syndrome?: No Has the patient ever had any past reaction to a flu shot?: No Immunizations Fluarix [id number] (PF) 45 mcg (15 mcg x 3)/0.5 mL IM syringe Performing Provider: OUSMANE Shay Performing Location: [facility] Administered by: Clari Regalado MA on 09/02/25 08:56 Dose Route Admin Location Dispensed Lot Number Expiration Date NDC Insurance Sales Supervisor 0.5 mL IM Left Deltoid 0.5 mL [id number] 03/28/26 15798-327-90 [employer] VIS Given Date VIS Provided VIS Publication Date 09/02/25 Single Vaccine 24 Eligibility Eligibility Date Funding Source Not [facility] Eligible 09/02/25 Private Coding Level of Care Code Est Pt Level 5 (25709) Complex visit Add On G2211 Diagnoses Acquired hypothyroidism E03.9 Hypothyroidism type: acquired Prediabetes R73.03 Memory impairment R41.3 Gait instability R26.81 Left hip pain M25.552 Influenza vaccination administered at current visit Z23 Class 1 obesity with alveolar hypoventilation, serious comorbidity, and body mass index (BMI) of 34.0 to 34.9 in adult E66.2; Z68.34 Serious obesity comorbidity presence: with serious comorbidity Vitamin D deficiency E55.9 Stage 3a chronic kidney disease N18.31 Chronic kidney disease stage 3 subtype: stage 3a (GFR 45-59) Mild intermittent asthma in adult without complication J45.20 Polyclonal gammopathy D89.0 Additional Codes JOSE-7 Assessment Billing - JOSE-7 Assessment Tool: JOSE-7 Assessment 81021 ([id number]) PHQ-9 - 90487 - PHQ-9 Billing: Yes ([id number]) Assessment & Plan Assessment & Plan (1) Hypothyroid: Code(s): E03.9 - Hypothyroidism, unspecified Category: Medical Qualifiers: Hypothyroidism type: acquired Qualified Code(s): E03.9 - Hypothyroidism, unspecified (2) Prediabetes: Code(s): R73.03 - Prediabetes Category: Medical (3) Memory impairment: Code(s): R41.3 - Other amnesia Category: Medical (4) Gait instability: Code(s): R26.81 - Unsteadiness on feet Category: Medical (5) Left hip pain: Code(s): M25.552 - Pain in left hip Category: Medical (6) Influenza vaccination administered at current visit: Onset Date: ~09/02/25 Code(s): Z23 - Encounter for immunization Category: Medical (7) Class 1 obesity with alveolar hypoventilation and body mass index (BMI) of 34.0 to 34.9 in adult: Comment: lifestyle mods recommended Code(s): E66.2 - Morbid (severe) obesity with alveolar hypoventilation; Z68.34 - Body mass index [BMI] 34.0-34.9, adult Category: Medical Qualifiers: Serious obesity comorbidity presence: with serious comorbidity Qualified Code(s): E66.2 - Morbid (severe) obesity with alveolar hypoventilation; Z68.34 - Body mass index [BMI] 34.0-34.9, adult (8) Vitamin D deficiency: Code(s): E55.9 - Vitamin D deficiency, unspecified Category: Medical (9) CKD (chronic kidney disease) stage 3, GFR 30-59 ml/min: Code(s): N18.30 - Chronic kidney disease, stage 3 unspecified Category: Medical Qualifiers: Chronic kidney disease stage 3 subtype: stage 3a (GFR 45-59) Qualified Code(s): N18.31 - Chronic kidney disease, stage 3a (10) Mild intermittent asthma in adult without complication: Code(s): J45.20 - Mild intermittent asthma, uncomplicated Category: Medical (11) Polyclonal gammopathy: Onset Date: ~07/2025 Code(s): D89.0 - Polyclonal hypergammaglobulinemia Category: Medical Plan . Orders: Orders Lipid Panel Today E03.9 - Hypothyroidism, unspecified, R73.03 - Prediabetes PT Evaluation and Treatment Today M25.552 - Pain in left hip, R26.81 - Unsteadiness on feet Influenza [id number] Immunization Today Z23 - Encounter for immunization Referrals Neurology Referral R41.3 - Other amnesia Medications: New sertraline 50 mg PO DAILY 90 tabs 0RF Refilled chlorthalidone 25 mg PO DAILY 90 tabs 1RF Discontinued nitrofurantoin monohyd/m-cryst 100 mg (Macrobid) must administer with a meal/food Discontinued Reason: Patient Completed Course 100 mg PO Q12H 7 days 14 caps 0RF sertraline Discontinued Reason: Patient Completed Course 25 mg PO DAILY 90 tabs 2RF Patient Instructions: Patient Instructions - Your dose of sertraline has been increased to 50 mg. Please take one tablet at bedtime to help with sleep. - If you have any 25 mg sertraline tablets left, you may take two of them at bedtime to finish your supply before starting the new 50 mg tablets. - Please get your blood work and provide a urine sample today in the lab. - You will receive a flu shot today before you leave. - We have put in referrals for Physical Therapy and Neurology. You should expect to receive phone calls from them to schedule appointments. - Please call to schedule the CAT scan of your chest that your lung doctor, Dr. Slater, ordered. This needs to be done before your appointment with him in September. - Schedule your Derm appt, [facility] in [place]. - Please schedule a follow-up appointment here in about 6 to 8 weeks to check on how you are doing with the medication change.
[2025-09-02 08:29] VITALS: BP 132/70; PULSE 8; RESP 13; TEMP 36.4; O2SAT 100; BMI 31.5
== END 2025-09-02 08:58 | disposition home or self-care (01) ==
LOC: HO.HMCFM 08:23
PROVIDERS: PCP Nurse Practitioner Family; Visit Provider Nurse Practitioner Family
DX: N18.31 Chronic kidney disease, stage 3a (principal); E03.9 Hypothyroidism, unspecified; E66.2 Morbid (severe) obesity with alveolar hypoventilation; Z68.34 Body mass index [BMI] 34.0-34.9, adult; R41.3 Other amnesia; R73.03 Prediabetes; M25.552 Pain in left hip; R26.81 Unsteadiness on feet; E55.9 Vitamin D deficiency, unspecified; Z23 Encounter for immunization

== ENCOUNTER 2025-09-10 09:39 | Outpatient (REF) | payer MEDICARE, SELFPAY ==
--- NOTE | ~2025-09-10 | CT_ITS ---
CLINICAL HISTORY: M35.00 - Sjogren syndrome, unspecified CT CHEST WITHOUT CONTRAST Comparison: None provided Findings: The heart size is normal. Normal caliber thoracic aorta. Multiple nonspecific nonenlarged mediastinal and bilateral hilar lymph nodes. No thyromegaly or mediastinal lymphadenopathy. Small hiatal hernia. No consolidation, pleural effusion or pneumothorax. No pulmonary mass. 4 mm noncalcified right lower lobe nodule. 1.4 cm and 1.1 cm thin walled pulmonary cysts in the right lower lobe. No significant interstitial changes. No significant bronchial wall thickening. The upper abdomen is unremarkable. No acute fractures. IMPRESSION: 1. No acute process. 2. Nonspecific solitary 4 mm pulmonary nodule in the right lower lobe. ACR Fleischner Society recommendations (MacMahon, et al. Radiology 2017; 284(1): 228-43) suggest the following: Generally no need for follow-up. An optional follow-up chest CT at 12 months could be performed if there is high index of suspicion. If unchanged, no further follow-up is necessary. This document has been electronically signed by: Kristine Serrano DO on 09/12/2025 13:31:32
--- OUTSIDE RECORDS SUMMARY | 2025-09-10 09:41 | XMS_ITS | Clinical Summary ---
Author Organization [facility] Address [address] [place], [place] [id number] Phone Care Team Providers Care Wheel Installer Name Role Phone Unknown, Unknown MD Unavailable Unavailable Unknown, Unknown Primary Care Provider eVrna lin Allergies Active Allergy Reactions Criticality Noted Date Comments [place] And Derivatives Hives 07/28/2012 Medications hydroxychloroqu ine [...] Active ferrous sulfate 325 mg (65 mg [place] iron) tablet Take 325 mg by mouth [...] EDT) TSH 1.09 0.27 - 4.20 uIU/mL [facility] Blood 02/16/2018 12:1 2 PM EDT 02/16/2018 12:14 PM EDT us Surendra Rojas MD LAB BLOOD BKR ORDERABLES Final Result [facility] [address] [place] [address] * Basic metabolic panel (02/16/2018 12:12 PM EDT) SODIUM 140 133 - 146 mmol/L [facility] CHLORIDE 104 96 - 108 mmol/L [facility] POTASSIUM 5.0 3.3 - 5.1 mmol/L [facility] CO2 28 21 - 35 mmol/L [facility] BUN 12 6 - 19 mg/dL [facility] CREATININE 0.90 0.5 - 1.5 mg/dL [facility] GLUCOSE 89 70 - 99 mg/dL [facility] CALCIUM 9.7 8.4 - 10.3 mg/dL [facility] EGFR 66 >59 mL/min/1.7 3m2 [facility] Comment:If patient is black, multiply result by 1.159. The eGFR calculation has changed from the MDRD equation to the CKD-EPI equation as of December 02, 2017. ANION GAP 13 10 - 20 mmol/L [facility] Blood 02/16/2018 12:1 2 PM EDT 02/16/2018 12:14 PM EDT us Surendra Rojas MD LAB BLOOD BKR ORDERABLES Final Result [address] [address] from Last 3 Months or Most Recently Relevant to Health Maintenance Insurance MEDICARE PART A & B MEDICARE PART A & B MEDICARE PART A & B MEDICARE PART A & B MEDICARE PART A & B MEDICARE PART A & B Care Teams Wheel Installer Relationship Specialty Start Date End Date Unknown, Unknown, PCP - General 01/18/20 Unknown, Unknown, 12/25/17 Additional Source Comments The information contained in this document represents components of the legal health record. It is not the complete legal health record.[facility]
--- OUTSIDE RECORDS SUMMARY | 2025-09-10 09:41 | XMS_ITS | Patient Health Record ---
Author Organization [facility] Address [address] [place] [address] Care Team Providers Care Burnisher Name Role Phone CHAPIS CARNES Primary Care Provider Reason For Referral No Information Plan Of Treatment No Information Insurance Providers Payer Name Payer Address Payer Phone Subscriber Number Group Number Insured Name Patient Relationship to Insured Coverage Start Date Coverage End Date COVID19 HRSA Uninsured Testing and Treatment CARES Act Provider Relief Fund [address] [address] [place] [address] [id number] Danyelle Hughes Self - patient is the insured 1 2
== END 2025-09-10 09:40 | disposition home or self-care (01) ==
LOC: HO.CT 09:39
PROVIDERS: PCP Nurse Practitioner Family; Visit Provider Internal Medicine Pulmonary Disease
DX: M35.00 Sjogren syndrome, unspecified (principal)
CPT/HCPCS: 71250

== ENCOUNTER → 2025-09-10 09:41 | Outpatient (BNV) | payer MEDICARE, SELFPAY | PROVIDERS: PCP Nurse Practitioner Family; Visit Provider Radiology Diagnostic Radiology | DX: M35.00 Sjogren syndrome, unspecified (principal) | CPT/HCPCS: 71250 ==